=== PATIENT | female | born 1965 | race Caucasian/White ===

== ENCOUNTER → 2017-04-14 | Outpatient (CLI) | payer BC | END | disposition home or self-care (01) | LOC: GMAB 11:19 | PROVIDERS: ATTEND Family Medicine | DX: I10 Essential (primary) hypertension (principal) ==

== ENCOUNTER → 2017-05-26 | Outpatient (CLI) | payer BC, SELFPAY ==
--- NOTE | 2017-05-27 15:53 | CT ---
EXAM DESCRIPTION: Chest w/Contrast CLINICAL HISTORY: 51 years, Female, CHEST PAIN COMPARISON: February 03, 2014 TECHNIQUE: Thin-section axial CT images are obtained during rapid bolus administration of 100 mL of IV contrast media. Reconstructed MPR images are created and reviewed as well. FINDINGS: Lungs clear. Heart normal size. No infiltrate or effusion. No pulmonary vascular abnormality detected. Soft tissues upper abdomen unremarkable. IMPRESSION: Normal study This exam was performed according to our departmental dose-optimization program, which includes automated exposure control, adjustment of the mA and/or kV according to patient size and/or use of iterative reconstruction technique. Electronically signed by: Elias Pastor MD 05/27/2017 3:51 PM CDT
== END ==
LOC: CT 08:21
PROVIDERS: ATTEND Family Medicine
DX: R59.9 Enlarged lymph nodes, unspecified (principal)

== ENCOUNTER → 2018-05-11 | Outpatient (CLI) | payer BC | LOC: GMAE 10:49 | PROVIDERS: ATTEND Family Medicine | DX: Z00.01 Encounter for general adult medical examination with abnormal findings (principal) ==

== ENCOUNTER → 2019-06-29 | Outpatient (CLI) | payer BC | LOC: GMAE 11:09 | PROVIDERS: ATTEND Family Medicine | DX: Z00.01 Encounter for general adult medical examination with abnormal findings (principal) ==

== ENCOUNTER → 2020-07-23 | Outpatient (CLI) | payer BC | LOC: GMAE 10:50 | PROVIDERS: ATTEND Family Medicine | DX: Z00.00 Encounter for general adult medical examination without abnormal findings (principal) ==